=== PATIENT | female | born 1975 | race Asian ===

== ENCOUNTER → 2017-04-29 | Outpatient (CLI) | payer OTHER | LOC: FIMAGING 13:03 | PROVIDERS: ATTEND Family Medicine | DX: Z12.31 Encounter for screening mammogram for malignant neoplasm of breast (principal); Z80.3 Family history of malignant neoplasm of breast | CPT/HCPCS: G0202 ==

== ENCOUNTER 2018-12-15 23:02 | Emergency (ER) | payer OTHER ==
--- NOTE | 2018-12-15 23:14 | EDPHY ---
H & P Stated Complaint: LUQ abd pain, sharp, worse right after eating Time Seen by Provider: 12/15/18 23:14 HPI/ROS: HPI CHIEF COMPLAINT: Sharp stabbing left-sided abdominal pain. HISTORY OF PRESENT ILLNESS: 43-year-old female otherwise healthy, denies significant medical history does not take any daily medications presents emergency room left-sided abdominal pain. She describes pain as sharp stabbing abdominal pain left flank left lower abdomen. It is now since resolved but is very severe earlier approximately an hour and half ago. Started at rest. Denies any urinary symptoms, denies fever, has nausea but no vomiting. Denies chest pain or shortness of breath. Past Medical History: Denies medical history Past Surgical History: Denies surgical history Social History: Denies drugs alcohol tobacco Family History: Noncontributory ROS REVIEW OF SYSTEMS: 10 Systems were reviewed and negative with the exception of the elements mentioned in the history of present illness. Exam Constitutional triage nursing summary reviewed, vital signs reviewed, awake/ alert. Eyes normal conjunctivae and sclera, EOMI, PERRLA. HENT normal inspection, atraumatic, moist mucus membranes, no epistaxis, neck supple/ no meningismus, no raccoon eyes. Respiratory clear to auscultation bilaterally, normal breath sounds, no respiratory distress, no wheezing. Cardiovascular rate normal, regular rhythm, no murmur, no edema, distal pulses normal. Gastrointestinal soft, non-tender, no rebound, no guarding, normal bowel sounds, no distension, no pulsatile mass. Genitourinary mild left flank pain. Musculoskeletal no midline vertebral tenderness, full range of motion, no calf swelling, no tenderness of extremities, no meningismus, good pulses, neurovascularly intact. Skin pink, warm, & dry, no rash, skin atraumatic. Neurologic awake, alert and oriented x 3, AAOx3, moves all 4 extremities equally, motor intact, sensory intact, CN II-XII intact, normal cerebellar, normal vision, normal speech. Psychiatric normal mood/affect. Heme/Lymph/Immune no lymphadenopathy. Differential Diagnosis: Differential diagnosis includes but is not limited to and in no particular order: Bowel obstruction, appendicitis, gallbladder disease, diverticulitis, colitis, enteritis, perforated viscus, gastritis, GERD , esophagitis, urinary tract infection, pyelonephritis, kidney stones Medical Decision Making: Plan for this patient IV establishment IV fluid bolus , basic labs, urinalysis, test, CT scan abdomen pelvis with IV contrast help delineate left-sided abdominal pain. Re-evaluation: Urinalysis reviewed shows bacteria blood. Urine cultures been ordered [address] scan abdomen pelvis with IV contrast shows no acute intra-abdominal or pelvic abnormality. CT scan of the abdomen pelvis with IV contrast shows no acute inflammatory process. Rather unremarkable CT scan. This was faxed to me by direct Radiology 12:32 a.m. Labs are reassuring. Urinalysis does show some blood and bacteria. I have sent a urine culture I have given her 1 g of Rocephin. Will end up treating her for possible urinary tract infection. Additionally it is possible she passed a kidney stone given the left flank left lower quadrant abdominal pain however we do not see any evidence of ureteral stranding on her CT scan. I discussed the patient's urinalysis results. Given the Bactrim blood will treat for urinary tract infection. Her CT scan abdomen pelvis with IV contrast did not reveal anything acute. On re-examination at this time 2:07 a.m. Her abdomen is soft nontender. She is not vomiting she wants to go home. She states she feels much better. She received 1 g Rocephin here in emergency room. Prescription will be provided for Keflex. She understands return to the emergency room if develops worsening abdominal pain, flank pain, vomiting, fever not doing well. I explained to the patient will place on Keflex after receiving 1 g Rocephin here in emergency room to the bacteria blood in her urine. Her CT scan was unrevealing for acute left-sided abdominal pain I explained I do not have a great explanation for abdominal pain however she has worsening abdominal pain she needs return emergency room she is comfortable this plan. Her abdomen is soft nontender. Source: Patient - Personal History LMP (Females 10-55): 15-21 Days Ago Current Tetanus Diphtheria and Acellular Pertussis (TDAP): Yes - Medical/Surgical History Hx Asthma: No Hx Chronic Respiratory Disease: No Hx Diabetes: No Hx Cardiac Disease: No Hx Renal Disease: No Hx Cirrhosis: No Hx Alcoholism: No Hx HIV/AIDS: No Hx Splenectomy or Spleen Trauma: No Other PMH: Denies - Social History Smoking Status: Never smoked Constitutional: Initial Vital Signs Temperature (C) 36.5 C 12/15/18 23:04 Heart Rate 82 12/15/18 23:04 Respiratory Rate 16 12/15/18 23:04 Blood Pressure 132/86 H 12/15/18 23:04 O2 Sat (%) 98 12/15/18 23:04 O2 Delivery Mode Room Air Allergies/Adverse Reactions: No Known Allergies Allergy (Unverified 12/15/18 23:07) Home Medications: Medication Instructions Recorded Cephalexin [Keflex] 500 mg PO Q6H #28 cap 12/16/18 Medical Decision Making - Data Points Laboratory Results: Laboratory Results 12/15/18 23:30 12/15/18 23:30 12/15/18 12/15/18 12/15/18 23:30 23:30 23:30 WBC 7.14 10^3/uL 10^3/uL (3.80-9.50) RBC 5.04 10^6/uL 10^6/uL (4.18-5.33) Hgb 14.6 g/dL g/dL (12.6-16.3) Hct 43.0 % % (38.0-47.0) MCV 85.3 fL fL (81.5-99.8) MCH 29.0 pg pg (27.9-34.1) MCHC 34.0 g/dL g/dL (32.4-36.7) RDW 12.2 % % (11.5-15.2) Plt Count 287 10^3/uL 10^3/uL (150-400) MPV 10.3 fL fL (8.7-11.7) Neut % (Auto) 60.6 % % (39.3-74.2) Lymph % (Auto) 30.8 % % (15.0-45.0) [place] % (Auto) 6.3 % % (4.5-13.0) Eos % (Auto) 1.4 % % (0.6-7.6) Baso % (Auto) 0.6 % % (0.3-1.7) Nucleat RBC Rel Count 0.0 % % (0.0-0.2) Absolute Neuts (auto) 4.33 10^3/uL 10^3/uL (1.70-6.50) Absolute Lymphs (auto) 2.20 10^3/uL 10^3/uL (1.00-3.00) Absolute Monos (auto) 0.45 10^3/uL 10^3/uL (0.30-0.80) Absolute Eos (auto) 0.10 10^3/uL 10^3/uL (0.03-0.40) Absolute Basos (auto) 0.04 10^3/uL 10^3/uL (0.02-0.10) Absolute Nucleated RBC 0.00 10^3/uL 10^3/uL (0-0.01) Immature Gran % 0.3 % % (0.0-1.1) Immature Gran # 0.02 10^3/uL 10^3/uL (0.00-0.10) Sodium 133 mEq/L L mEq/L (135-145) Potassium 4.0 mEq/L mEq/L (3.5-5.2) Chloride 102 mEq/L mEq/L (97-110) Carbon Dioxide 20 mEq/l L mEq/l (22-31) Anion Gap 11 mEq/L mEq/L (6-14) BUN 18 mg/dL mg/dL (7-23) Creatinine 0.7 mg/dL mg/dL (0.6-1.0) Estimated GFR > 60 Glucose 181 mg/dL H mg/dL (70-100) Calcium 9.2 mg/dL mg/dL (8.5-10.4) Total Bilirubin 0.7 mg/dL mg/dL (0.1-1.4) Conjugated Bilirubin 0.1 mg/dL mg/dL (0.0-0.5) Unconjugated Bilirubin 0.6 mg/dL mg/dL (0.0-1.1) AST 18 IU/L IU/L (14-46) ALT 14 IU/L IU/L (9-52) Alkaline Phosphatase 46 IU/L IU/L (38-126) Total Protein 7.1 g/dL g/dL (6.3-8.2) Albumin 4.2 g/dL g/dL (3.5-5.0) Lipase 98 IU/L IU/L (23-300) Beta HCG, Qual NEGATIVE Urine Color Urine Appearance Urine pH Ur Specific [place] Urine Protein Urine Ketones Urine Blood Urine Nitrate Urine Bilirubin Urine Urobilinogen Ur Leukocyte Esterase Urine RBC Urine WBC Ur Epithelial Cells Urine Bacteria Urine Mucus Urine Glucose 04/30/19 23:20 WBC RBC Hgb Hct MCV MCH MCHC RDW Plt Count MPV Neut % (Auto) Lymph % (Auto) [place] % (Auto) Eos % (Auto) Baso % (Auto) Nucleat RBC Rel Count Absolute Neuts (auto) Absolute Lymphs (auto) Absolute Monos (auto) Absolute Eos (auto) Absolute Basos (auto) Absolute Nucleated RBC Immature Gran % Immature Gran # Sodium Potassium Chloride Carbon Dioxide Anion Gap BUN Creatinine Estimated GFR Glucose Calcium Total Bilirubin Conjugated Bilirubin Unconjugated Bilirubin AST ALT Alkaline Phosphatase Total Protein Albumin Lipase Beta HCG, Qual Urine Color YELLOW Urine Appearance HAZY Urine pH 5.0 (5.0-7.5) Ur Specific [place] 1.030 (1.002-1.030) Urine Protein NEGATIVE (NEGATIVE) Urine Ketones NEGATIVE (NEGATIVE) Urine Blood 1+ H (NEGATIVE) Urine Nitrate NEGATIVE (NEGATIVE) Urine Bilirubin NEGATIVE (NEGATIVE) Urine Urobilinogen NEGATIVE EU EU (0.2-1.0) Ur Leukocyte Esterase NEGATIVE (NEGATIVE) Urine RBC 1-3 /hpf /hpf (0-3) Urine WBC 1-3 /hpf /hpf (0-3) Ur Epithelial Cells TRACE /lpf /lpf (NONE-1+) Urine Bacteria TRACE /hpf H /hpf (NONE SEEN) Urine Mucus 1+ /lpf /lpf (NONE-1+) Urine Glucose NEGATIVE (NEGATIVE) Medications Given: Discontinued Medications Sodium Chloride (Ns) 1,000 mls @ 0 mls/hr IV EDNOW ONE; Wide Open PRN Reason: Protocol Stop: 12/15/18 23:15 Last Admin: 12/15/18 23:37 Dose: 1,000 mls Ceftriaxone Sodium/Dextrose (Rocephin 1 Gm (Premix)) 50 mls @ 100 mls/hr IV EDNOW ONE PRN Reason: Protocol Stop: 12/16/18 00:40 Last Admin: 12/16/18 00:25 Dose: 50 mls Departure - Departure Disposition: Home, Routine, Self-Care Clinical Impression: Abdominal pain, UTI (urinary tract infection) Condition: Good Instructions: Urinary Tract Infection in Women (ED), Acute Abdominal Pain (ED) Additional Instructions: 1. Drink lots of fluids stay well-hydrated 2. Antibiotics as prescribed 3. Return to the emergency room if he develops worsening abdominal pain, fever, vomiting or not doing well Referrals: NONE *PRIMARY CARE P,. [Primary Care Provider] - As per Instructions [facility],. [Clinic] - As per Instructions Prescriptions: Cephalexin [Keflex] 500 mg PO Q6H #28 cap
[2018-12-15] MEDS: NS 1,000 ML IV ONE (23:37)
[2018-12-15 23:38] LABS: PLATELET COUNT 287 10^3/uL (150-400)
[2018-12-16] MEDS ORDERED: IOPAMIDOL (ISOVUE-300) 100 ML BTL ONE
[2018-12-16 02:19] VITALS: BP 113/75
== END 2018-12-16 02:22 | disposition home or self-care (01) ==
DX: R10.32 Left lower quadrant pain (principal); N39.0 Urinary tract infection, site not specified; E86.9 Volume depletion, unspecified
CPT/HCPCS: 96374; J0696; Q9967